=== PATIENT | male | born 1960 | race Caucasian/White ===

== ENCOUNTER 2016-08-29 08:54 | Inpatient (IN) | payer OTHER ==
[~2016-08-29] VITALS: Ht 182.9 cm; Wt 123.6 kg
--- NOTE | 2016-08-29 10:12 | DIAGNOSTIC IMAGING REPORT ---
PROCEDURE: XR CHEST 2 VIEW INDICATION: COUGH AND SOB TECHNIQUE: PA and lateral views. COMPARISON: None. FINDINGS: Mild cardiomegaly and pulmonary vascular congestion with mild interstitial changes. Probable small pleural effusions. Mediastinum is normal. Thorax is normal IMPRESSION: 1. Mild cardiomegaly with pulmonary vascular congestion /interstitial changes. Probable small effusions. Findings are most compatible with congestive heart failure, although interstitial pneumonitis (e.g., viral, Mycoplasma) should also be considered. 2. Findings discussed with Dr. Rio Fraga.
--- NOTE | 2016-08-29 12:25 | ED NURSING NOTES ---
Clinical Report - Nurses [facility] [address] [place] [address] 08/29/2016 8:57 [id number] Triage time 09:09. Chief Complaint: DIFFICULTY BREATHING. --09:10 Olesya Bennett R.N. Alert. --09:17 Olesya Bennett R.N. 09:13 08/29/16. BP: 151/125. HR: 87. RR: 18. O2 saturation: 97%. Temp: 98.4 F. Pain level now: 0/10. Additional comments: PT STATES HE WAS UP ALL NIGHT WITH DIFFICULTY BREATHING. --09:17 Olesya Bennett R.N. Weight: 120.6 kg stated. Height/Length: 72 inches Per Patient. BMI: 36.1. --09:15 Olesya Bennett R.N. Medications None. --09:13 Olesya Bennett R.N. Allergies Eggs or Egg-derived Products. --09:13 Olesya Bennett R.N. History Arrived by private vehicle. Historian: patient. Accompanied by spouse. Primary physician (no PCP). Onset. (2 weeks ago). --09:10 Olesya Bennett R.N. Treatment SHERIFFS: None. PAST MEDICAL HX: Negative. Immunizations: up-to-date. SOCIAL HX: Former smoker, end date 07/2016. Alcohol use; consumes two liquor drinks weekly. No drug use. FUNCTIONAL ASSESSMENT: Functional assessment: no impairments noted. LEARNING NEEDS ASSESSMENT: The learning needs assessment revealed no barriers. --09:17 Olesya Bennett R.N. Interventions ID band on patient. To room. --09:17 Olesya Bennett R.N. PHYSICAL ASSESSMENT 09:17 08/29/16. GENERAL / NEURO / PSYCH: Alert. Oriented X 4. Appears in no acute distress. RESPIRATORY: The patient can speak in full sentences. --09:17 Olesya Bennett R.N. 09:18 08/29/16. RESPIRATORY: Crackles present in the bases bilaterally. --09:18 Olesya Bennett R.N. RESPIRATORY: ( Pt states he used to smoke cigars, but quit 3 weeks ago). --09:22 Olesya Bennett R.N. NURSING PROGRESS NOTES 09:17 08/29/16. Patient gowned. Head of bed elevated. Patient identifiers checked. Call light placed in reach. Bed placed in lowest position. --09:17 Olesya Bennett R.N. 09:35 08/29/16. maintenance service dispatcher, pulse oximeter and NIBP monitor placed on patient; paratransit operator- Lead II and V1; monitor alarms on (Pt appears to be in A FIB with MVR and gets tachy up to 140). --09:35 Thomas Crespo R.N. 09:36 08/29/2016 Site #1 started via IV in the right wrist with an 20g angiocath, with aseptic technique; one attempt. Blood drawn: rainbow set. Labeled in the presence of the patient and sent to the lab. Saline lock flushed with 10 mL saline. --09:36 Thomas Crespo R.N. 09:39 08/29/16. HR: 140 (irregular). Additional comments: EKG ordered. --09:39 Olesya Bennett R.N. 10:30 08/29/16. HR: 127 (irregular). RR: 16. O2 saturation: 95%. --10:43 Olesya Bennett R.N. 10:43 08/29/2016 Diltiazem IVP 10 mg given over 2 minute(s) via site #1. Confirmed 5 rights. --10:44 Olesya Bennett R.N. 10:44 08/29/16. BP: 123/87. HR: 103. RR: 16. O2 saturation: 93% on nasal cannula at 2 liters/minute. --10:45 Olesya Bennett R.N. 11:47 08/29/16. BP: 131/103. HR: 99. RR: 20. O2 saturation: 98%. --11:57 Olesya Bennett R.N. 12:15 08/29/16. ( Pt placed in an inpatient bed for comfort, since there will still be a 3 hour wait to admit.). --12:15 Olesya Bennett R.N. 12:33 08/29/2016 Lovenox (Enoxaparin Sodium) Subcutaneous 80 mg given. Given in the right abdomen. Confirmed 5 rights. --12:33 Olesya Bennett R.N. 12:34 08/29/2016 Diltiazem IVP 10 mg given over 1 minute(s) via site #1. Confirmed 5 rights. --12:34 Olesya Bennett R.N. 13:00 08/29/16. ( Lab in room drawing cultures.). --13:00 Olesya Bennett R.N. 13:21 08/29/2016 Started 2 gm of Ceftriaxone IVPB in bag #1 100 mL; at 150 mL/hr over 30 minute(s) via site #1 via IV pump. Allergies verified and confirmed 5 rights. --13:21 Olesya Bennett R.N. 13:41 08/29/2016 Ceftriaxone IVPB Discontinued: bag #1 infused. Total amount infused: 50 mL. --13:41 Caroline Lee R.N. 13:58 08/29/2016 Started 500 mg of Azithromycin IVPB in bag #1 255 mL; at 255 mL/hr via site #1 via IV pump. Confirmed 5 rights. --13:58 Olesya Bennett R.N. 13:59 08/29/16. BP: 135/101. HR: 110 (irregular). RR: 18. --14:02 Olesya Bennett R.N. 14:59 08/29/2016 Azithromycin IVPB Discontinued: bag #1 infused. Total amount infused: 250 mL. IV patency established. IV site checked: no pain, redness, or swelling. IV flushed thoroughly. --14:59 Caroline Lee R.N. 15:07 08/29/2016 Metoprolol PO 50 mg given. Allergies verified and confirmed 5 rights. --15:07 Caroline Lee R.N. DISPOSITION / DISCHARGE 15:26 08/29/16. Report was given to a nurse via a phone call. Report included patient's care, treatment, medications, reviewed medication reconcilliation, and condition (including any recent changes or anticipated changes). All questions were answered. Report was acknowledged and care was transferred. --15:26 Olesya Bennett R.N. 15:25 08/29/16. BP: 132/85. HR: 120. RR: 18. O2 saturation: 96%. Temp: deferred. Pain level now: 0/10. Additional comments: Pt drinking a milkshake. --15:26 Olesya Bennett R.N. Locked/Released at 08/29/2016 15:37 by Olesya Bennett R.N.
--- NOTE | 2016-08-29 12:25 | ED ORDER SUMMARY ---
..... Patient: BERTHA QUINONES OrderSheet [facility] VisitID: [id number] [place] [address] 56y, M Registration Date/Time: 08/29/2016 ORDER SHEET Weight: 120.6 kg (stated) Allergies: Eggs or Egg-derived Products GENERAL ORDERS: Chest 2V Urgent (09:08/29/2016 Amber Palmer) (Ack 9:31 MARCOSoerner) (10:45 LSullivan R.N.) Brooch And Bracelet Maker (Continuous) (Respiratory Distress) (09:08/29/2016 Amber Palmer) (9:30 LWhalen R.N.) CBC w Diff Urgent (:08/29/2016 Amber Palmer) (Ack 9:31 MARCOSoerner) (9:36 LWhalen R.N.) CMP Urgent (09:08/29/2016 Amber Palmer) (Ack 9:31 MARCOSoerner) (9:36 LWhalen R.N.) BNP Urgent (09:08/29/2016 Amber Palmer) (Ack 9:31 MARCOSoerner) (9:36 LWhalen R.N.) Troponin-I Urgent (09:08/29/2016 Amber Palmer) (Ack 9:31 MARCOSoerner) (9:36 LWhalen R.N.) Pulse oximeter (09:08/29/2016 Amber Palmer) (9:30 LWhalen R.N.) EKG - ER Stat (09:08/29/2016 Amber Palmer) (9:30 LWhalen R.N.) (Ack 9:31 MARCOSoerner) TSH Urgent (10:08/29/2016 Amber Palmer) (Ack 10:28 MARCOSoehood) (10:45 LSullivan R.N.) Magnesium Urgent (10:08/29/2016 Amber Palmer) (Ack 10:28 Ramos) (10:45 LSullivan R.N.) Blood Culture (No) (N/A) Urgent (12:33 08/29/2016 Amber Palmer) (Ack 12:38 Ramos) (12:44 Ramos) MEDICATION ORDERS: Lovenox Subcut 80 mg (HIGH ALERT MEDICATION, NOW) (12:20 08/29/2016 Amber Palmer) (12:33 LSullivan R.N.) Metoprolol PO 50 mg (HIGH ALERT MEDICATION, NOW) (14:57 08/29/2016 Amber Palmer) (Ack 15:03 MWinterer R.N.) (15:07 MWinterer R.N.) IV FLUIDS: IV Saline Lock (09:29 08/29/2016 Amber Palmer) (9:36 LWhalen R.N.) Diltiazem IV 10 mg (HIGH ALERT MEDICATION, NOW) (10:24 08/29/2016 Amber Palmer) (10:44 LSullivan R.N.) Diltiazem IV 10 mg (HIGH ALERT MEDICATION, NOW) (12:18 08/29/2016 Amber Palmer) (12:34 LSullivan R.N.) Ceftriaxone IV 2 gm/50mL (NOW) (12:19 08/29/2016 Amber Palmer) (13:21 LSullivan R.N.) Azithromycin IV 500 mg/250 mL (NOW) (12:20 08/29/2016 Amber Palmer) (13:58 LSullivan R.N.) ORDER SHEET NOTES: [Electronically signed by Olesya Bennett R.N. (15:37 08/29/2016)] [Electronically signed by Rio Fraga Dr. (22:09 09/04/2016)] [Electronically locked/signed by Olesya Bennett R.N. (15:37 08/29/2016)]
--- NOTE | 2016-08-29 12:25 | ED ORDER SUMMARY ---
..... Patient: BERTHA QUINONES OrderSheet VisitID: [id number] [place] [address] 56y, M Registration Date/Time: 08/29/2016 ORDER SHEET Weight: 120.6 kg (stated) Allergies: Eggs or Egg-derived Products GENERAL ORDERS: Chest 2V Urgent (09:08/29/2016 Amber Palmer) (Ack 9:31 MARCOSoerner) (10:45 LSullivan R.N.) Pillow Agent (Continuous) (Respiratory Distress) (09:08/29/2016 Amber Palmer) (9:30 LWhalen R.N.) CBC w Diff Urgent (:08/29/2016 Amber Palmer) (Ack 9:31 MARCOSoerner) (9:36 LWhalen R.N.) CMP Urgent (09:08/29/2016 Amber Palmer) (Ack 9:31 MARCOSoerner) (9:36 LWhalen R.N.) BNP Urgent (09:08/29/2016 Amber Palmer) (Ack 9:31 MARCOSoerner) (9:36 LWhalen R.N.) Troponin-I Urgent (09:08/29/2016 Amber Palmer) (Ack 9:31 MARCOSoerner) (9:36 LWhalen R.N.) Pulse oximeter (09:08/29/2016 Amber Palmer) (9:30 LWhalen R.N.) EKG - ER Stat (09:08/29/2016 Amber Palmer) (9:30 LWhalen R.N.) (Ack 9:31 MARCOSoerner) TSH Urgent (10:08/29/2016 Amber Palmer) (Ack 10:28 MARCOSoehood) (10:45 LSullivan R.N.) Magnesium Urgent (10:08/29/2016 Amber Palmer) (Ack 10:28 Ramos) (10:45 LSullivan R.N.) Blood Culture (No) (N/A) Urgent (12:33 08/29/2016 Amber Palmer) (Ack 12:38 Ramos) (12:44 Ramos) MEDICATION ORDERS: Lovenox Subcut 80 mg (HIGH ALERT MEDICATION, NOW) (12:20 08/29/2016 Amber Palmer) (12:33 LSullivan R.N.) Metoprolol PO 50 mg (HIGH ALERT MEDICATION, NOW) (14:57 08/29/2016 Amber Palmer) (Ack 15:03 MWinterer R.N.) (15:07 MWinterer R.N.) IV FLUIDS: IV Saline Lock (09:29 08/29/2016 Amber Palmer) (9:36 LWhalen R.N.) Diltiazem IV 10 mg (HIGH ALERT MEDICATION, NOW) (10:24 08/29/2016 Amber Palmer) (10:44 LSullivan R.N.) Diltiazem IV 10 mg (HIGH ALERT MEDICATION, NOW) (12:18 08/29/2016 Amber Palmer) (12:34 LSullivan R.N.) Ceftriaxone IV 2 gm/50mL (NOW) (12:19 08/29/2016 Amber Palmer) (13:21 LSullivan R.N.) Azithromycin IV 500 mg/250 mL (NOW) (12:20 08/29/2016 Amber Palmer) (13:58 LSullivan R.N.) ORDER SHEET NOTES: [Electronically signed by Olesya Bennett R.N. (15:37 08/29/2016)] [Electronically signed by Rio Fraga Dr. (22:09 09/04/2016)] [Electronically locked/signed by Olesya Bennett R.N. (15:37 08/29/2016)]
--- NOTE | 2016-08-29 12:25 | ED CLINICAL REPORT ---
Clinical Report - Physicians/Mid Levels [facility] [address] [place] [address] 08/29/2016 8:57 Patient: BETRHA QUINONES Time Seen: 0915. Arrived- By private vehicle. Historian- patient. HISTORY OF PRESENT ILLNESS Chief Complaint: DYSPNEA. This started past few weeks and is still present. It was abrupt in onset and has been constant but is not gone now. The dyspnea is described as moderate and is worsened by being in a supine position and is improved with sitting upright. The patient has had a cough. He has had moderate amounts of yellow sputum. No fever, sweating episodes, wheezing or chest pain or discomfort. No calf pain, foot swelling, anxiety, dizziness or numbness. No palpitations. (reports no hemoptysis, hx of DVT/PE, leg swelling, recent trauma/surgeries. + sick contacts at work. Reports "everyone is sick."). Similar symptoms previously: None. Recent medical care: Not recently seen/assessed. REVIEW OF SYSTEMS No nausea, vomiting, abdominal pain, black stools or bloody stools. No headache or blurred vision. All systems otherwise negative, except as recorded above. PAST HISTORY See nurses notes. Medications: None. Allergies: Eggs or Egg-derived Products. SOCIAL HISTORY Smoker- current status unknown (cigar). Alcohol use. No drug use. No recent travel. Is a local resident. ADDITIONAL NOTES The nursing notes have been reviewed. PHYSICAL EXAM Vital Signs: 08/29/2016 09:13 BP: 151/125. HR: 87. RR: 18. O2 saturation: 97%. Temp: 98.4 F. Pain level now: 0/10. Blood pressure normal. Oxygen saturation normal. Appearance: Alert. No acute distress. Eyes: Pupils equal, round and reactive to light. Eyes normal inspection. Neck: Normal inspection. No jugular venous distention. Neck supple. CVS: Normal heart rate and rhythm. Heart sounds normal. Pulses normal. Respiratory: No respiratory distress. Breath sounds normal. No wheezes, stridor, rales or rhonchi. Abdomen: Soft and nontender. No organomegaly. Skin: Skin warm and dry. Normal skin color. No rash. Normal skin turgor. Extremities: Extremities exhibit normal ROM. No lower extremity edema. Neuro: Oriented X 3. No motor deficit. No sensory deficit. LABS, X-RAYS, AND EKG EKG: No acute ischemia. Atrial fibrillation (123). Normal QRS complex. Normal axis. Normal ST and T waves, QT and QTc. Prior EKG unavailable. The study has been interpreted contemporaneously. The study has been independently viewed by me. The EKG appears to be a good tracing. Chest X-ray: (PROCEDURE: XR CHEST 2 VIEW INDICATION: COUGH AND SOB TECHNIQUE: PA and lateral views. COMPARISON: None. FINDINGS: Mild cardiomegaly and pulmonary vascular congestion with mild interstitial changes. Probable small pleural effusions. Mediastinum is normal. Thorax is normal IMPRESSION: 1. Mild cardiomegaly with pulmonary vascular congestion /interstitial changes. Probable small effusions. Findings are most compatible with congestive heart failure, although interstitial pneumonitis (e.g., viral, Mycoplasma) should also be considered.). Views: PA and lateral. Technique: good. The X-rays were independently viewed by me and interpreted by the radiologist. The X-rays were discussed with the radiologist (via phone and pacs). Laboratory Tests: CBC w Diff: (RODRIGUEZ: 08/29/2016 09:30) ( MsgRcvd 08/29/2016 09:44) Final results Test Result Flag Units (Reference) WHITE BLOOD COUNT 8.4 K/uL (4.5-11.5) RED BLOOD COUNT 5.05 M/uL (4.50-5.90) HEMOGLOBIN 15.6 gm/dL (13.5-17.5) HEMATOCRIT 46.2 % (41.0-53.0) MEAN CELL VOLUME 91 fL (80-100) MEAN CORPUSCULAR HGB 31 pg (26-34) MEAN CORPUSCULAR HGB CONC 34 g/dL (31-37) RED CELL DISTRIBUTION WIDTH 14.1 % (11.6-14.8) PLATELET COUNT 279 K/uL (150-400) NEUTROPHIL % 66.4 % (50-75) LYMPH % 21.5 L % (25-40) MONO % 9.0 % (3-14) EOSINOPHIL % 2.2 % (0-4) BASOPHIL % 0.9 % (0-2) BNP: (RODRIGUEZ: 08/29/2016 09:30) ( MsgRcvd 08/29/2016 10:09) Final results Test Result Flag Units (Reference) B-TYPE NATRIURETIC PEPTIDE 294 H pg/ml (5-100) CMP: (RODRIGUEZ: 08/29/2016 09:30) ( MsgRcvd 08/29/2016 09:59) Final results Test Result Flag Units (Reference) GLUCOSE 113 H mg/dL (70-110) BUN 24 H mg/dL (7-18) CREATININE 1.3 mg/dL (0.6-1.3) Estimated GFR >60 mL/min Estimated GFR- >60 mL/min Note: Persistent reduction over 3 months in eGFR<60 mL/min/1.73 m2 defines CKD. Patients with eGFR values>=60 mL/min/1.73 m2 may also have CKD if evidence ofpersistent proteinuria. Additional information may be foundat www.kidney.org. SODIUM 142 mmol/L (136-145) POTASSIUM 4.0 mmol/L (3.5-5.1) CHLORIDE 108 H mmol/L (98-107) CARBON DIOXIDE 25 mmol/L (21-32) CALCIUM 8.6 mg/dL (8.5-10.1) TOTAL PROTEIN 6.6 g/dL (6.4-8.2) ALBUMIN 3.6 g/dL (3.3-5.0) BILIRUBIN, TOTAL 0.5 mg/dL (0.0-1.0) ALKALINE PHOSPHATASE 76 U/L (46-116) AST (SGOT) 17 U/L (15-37) ALT (SGPT) 44 U/L (12-78) TROPONIN I 0.05 ng/mL (0.00-1.5) TROPONIN REFERENCE RANGE:<0.1 NEGATIVE0.1-1.5 INDETERMINANT>1.5 POSITIVE . PROGRESS AND PROCEDURES Course of Care: he patient is a pleasant 56-year-old gentleman presenting for evaluation of shortness of breath. Patient is also having cough at this time. Differential diagnosis includes pneumonia, acute myocardial infarction,spontaneous pneumothorax, bronchitis. Patient is nontoxic and is in no acute distress. No concern for sepsis at this time. Patient is agreeable to the treatment and plan. We'll obtainEKG, chest x-ray, and laboratory studies. Patient's workup was remarkable for abnormal findings on EKG. After I left the room, patient was placed on the monitor. His rhythm appeared to change from regular rate and rhythm to irregularly irregularrate and rhythm. EKGs been ordered anddoesn't show signs of atrial for ablation. Patient reports having no history of atrial fibrillation. Unclear of the time of onset for the patient's symptoms and atrial fibrillation. Because patient as been ill for the past several weeks, do not feel comfortableobtaining rhythm control. At this point in time rate control would be obtained. Patient's chads Shanti score was calculated to be 2. Patient is at a 2.2% risk ofcardioembolic stroke. Had long discussion with patient in regards to the workup that he has had here in the emergency department and risks and benefits of pursuing anticoagulation. Patient is agreeable to the treatment and plan. Patient will be admitted to the hospital for further workup and management. Patient is required 2 doses of diltiazem to have his heart ratecontrolled. At this time, patient's heart rateimproved from 130 -140s now to low 100s. Patient is resting in bed and in no acute distress. There at this time, patient reports being a symptomatic. Had long discussion with hospitalist in regards to the patient's presentation here in the emergency department. Hospitalist will except the patient. Unfortunately, we do not have any space available at this time and will have a 1 bed available at approximately 3:00 this afternoon. Patient is agreeable to staying here in the hospital. Do not feel patient needs to be transferred at this time. Do not feel symptoms are caused by acute pulmonary embolism. Patient without risk factors for pulmonary embolism. Patient is at low risk for Wells criteria. Critical care performed (65 minutes). Time is exclusive of separately billable procedures. Time includes: direct patient care, patient reassessment, coordination of patient care, interpretation of data (laboratory data), review of patient's medical records, medical consultation, family consultation regarding treatment decisions and documentation of patient care. CLINICAL IMPRESSION new onset atrial fibrilation bilateral pneumonia acute mild CHF. (Electronically signed by Rio Fraga Dr. 09/04/2016 22:09)
--- NOTE | 2016-08-29 12:25 | ED NURSING NOTES ---
Clinical Report - Nurses [facility] [address] [place] [address] 08/29/2016 8:57 [id number] Triage time 09:09. Chief Complaint: DIFFICULTY BREATHING. --09:10 Olesya Bennett R.N. Alert. --09:17 Olesya Bennett R.N. 09:13 08/29/16. BP: 151/125. HR: 87. RR: 18. O2 saturation: 97%. Temp: 98.4 F. Pain level now: 0/10. Additional comments: PT STATES HE WAS UP ALL NIGHT WITH DIFFICULTY BREATHING. --09:17 Olesya Bennett R.N. Weight: 120.6 kg stated. Height/Length: 72 inches Per Patient. BMI: 36.1. --09:15 Olesya Bennett R.N. Medications None. --09:13 Olesya Bennett R.N. Allergies Eggs or Egg-derived Products. --09:13 Olesya Bennett R.N. History Arrived by private vehicle. Historian: patient. Accompanied by spouse. Primary physician (no PCP). Onset. (2 weeks ago). --09:10 Olesya Bennett R.N. Treatment SACK KEEPER: None. PAST MEDICAL HX: Negative. Immunizations: up-to-date. SOCIAL HX: Former smoker, end date 07/2016. Alcohol use; consumes two liquor drinks weekly. No drug use. FUNCTIONAL ASSESSMENT: Functional assessment: no impairments noted. LEARNING NEEDS ASSESSMENT: The learning needs assessment revealed no barriers. --09:17 Olesya Bennett R.N. Interventions ID band on patient. To room. --09:17 Olesya Bennett R.N. PHYSICAL ASSESSMENT 09:17 08/29/16. GENERAL / NEURO / PSYCH: Alert. Oriented X 4. Appears in no acute distress. RESPIRATORY: The patient can speak in full sentences. --09:17 Olesya Bennett R.N. 09:18 08/29/16. RESPIRATORY: Crackles present in the bases bilaterally. --09:18 Olesya Bennett R.N. RESPIRATORY: ( Pt states he used to smoke cigars, but quit 3 weeks ago). --09:22 Olesya Bennett R.N. NURSING PROGRESS NOTES 09:17 08/29/16. Patient gowned. Head of bed elevated. Patient identifiers checked. Call light placed in reach. Bed placed in lowest position. --09:17 Olesya Bennett R.N. 09:35 08/29/16. sleeve setter lockstitch, pulse oximeter and NIBP monitor placed on patient; technical laboratory asst- Lead II and V1; monitor alarms on (Pt appears to be in A FIB with MVR and gets tachy up to 140). --09:35 Thomas Crespo R.N. 09:36 08/29/2016 Site #1 started via IV in the right wrist with an 20g angiocath, with aseptic technique; one attempt. Blood drawn: rainbow set. Labeled in the presence of the patient and sent to the lab. Saline lock flushed with 10 mL saline. --09:36 Thomas Crespo R.N. 09:39 08/29/16. HR: 140 (irregular). Additional comments: EKG ordered. --09:39 Olesya Bennett R.N. 10:30 08/29/16. HR: 127 (irregular). RR: 16. O2 saturation: 95%. --10:43 Olesya Bennett R.N. 10:43 08/29/2016 Diltiazem IVP 10 mg given over 2 minute(s) via site #1. Confirmed 5 rights. --10:44 Olesya Bennett R.N. 10:44 08/29/16. BP: 123/87. HR: 103. RR: 16. O2 saturation: 93% on nasal cannula at 2 liters/minute. --10:45 Olesya Bennett R.N. 11:47 08/29/16. BP: 131/103. HR: 99. RR: 20. O2 saturation: 98%. --11:57 Olesya Bennett R.N. 12:15 08/29/16. ( Pt placed in an inpatient bed for comfort, since there will still be a 3 hour wait to admit.). --12:15 Olesya Bennett R.N. 12:33 08/29/2016 Lovenox (Enoxaparin Sodium) Subcutaneous 80 mg given. Given in the right abdomen. Confirmed 5 rights. --12:33 Olesya Bennett R.N. 12:34 08/29/2016 Diltiazem IVP 10 mg given over 1 minute(s) via site #1. Confirmed 5 rights. --12:34 Olesya Bennett R.N. 13:00 08/29/16. ( Lab in room drawing cultures.). --13:00 Olesya Bennett R.N. 13:21 08/29/2016 Started 2 gm of Ceftriaxone IVPB in bag #1 100 mL; at 150 mL/hr over 30 minute(s) via site #1 via IV pump. Allergies verified and confirmed 5 rights. --13:21 Olesya Bennett R.N. 13:41 08/29/2016 Ceftriaxone IVPB Discontinued: bag #1 infused. Total amount infused: 50 mL. --13:41 Caroline Lee R.N. 13:58 08/29/2016 Started 500 mg of Azithromycin IVPB in bag #1 255 mL; at 255 mL/hr via site #1 via IV pump. Confirmed 5 rights. --13:58 Olesya Bennett R.N. 13:59 08/29/16. BP: 135/101. HR: 110 (irregular). RR: 18. --14:02 Olesya Bennett R.N. 14:59 08/29/2016 Azithromycin IVPB Discontinued: bag #1 infused. Total amount infused: 250 mL. IV patency established. IV site checked: no pain, redness, or swelling. IV flushed thoroughly. --14:59 Caroline Lee R.N. 15:07 08/29/2016 Metoprolol PO 50 mg given. Allergies verified and confirmed 5 rights. --15:07 Caroline Lee R.N. DISPOSITION / DISCHARGE 15:26 08/29/16. Report was given to a nurse via a phone call. Report included patient's care, treatment, medications, reviewed medication reconcilliation, and condition (including any recent changes or anticipated changes). All questions were answered. Report was acknowledged and care was transferred. --15:26 Olesya Bennett R.N. 15:25 08/29/16. BP: 132/85. HR: 120. RR: 18. O2 saturation: 96%. Temp: deferred. Pain level now: 0/10. Additional comments: Pt drinking a milkshake. --15:26 Olesya Bennett R.N. Locked/Released at 08/29/2016 15:37 by Olesya Bennett R.N.
[2016-08-29 15:55] VITALS: BP 128/87
--- NOTE | 2016-08-29 18:05 | History & Physical Report ---
Information Source Information Source: Self Reliability: Good History Chief Complaint chest flutters and cough History of Present Illness Patient is a 56 year old male with no significant past medical history that is presenting with shortness of breath, palpitations, and cough. Patient claims that earlier this week, approximately 2 days ago he noticed that it was very difficult to lie down without becoming short of breath, and that he would need to sleep on two pillows in order to feel better. Patient continued to have 2 pillow orthopnea however he noticed that his overall excercise tolerance was compromised as well. Patient didnt think much of it, however after attempting to deal with it for the next 2 days he began to notice that he was developing palpitations as well. Patient then started to develop a cough. Overall picture became worrisome for the patient, so he came to the hospital. Upon arrival patient was seen to be in rapid atrial fibrillation. Patient was treated with diltiazem and metoprolol and his rate was better controlled. Patient History 1. Atrial fibrillation, new onset 2. Congestive heart failure Social History Patient lives with his and son. He drinks socially and has a remote history of cigar smoking which lasted about 1.5 years and it was a daily habit. 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 Patient denies any illicit drug use. Family History Family history was reviewed; no changes noted. Medications and Allergies Medications Home Medications No home medications Current Medications Sig/Susanne Start time Last Medication Dose Route Stop Time Status Admin Metoprolol Succinate 25 MG DAILY 08/30 1000 AC 08/30 PO 1030 Diltiazem HCl 120 MG DAILY 08/30 0900 AC 08/30 PO 1030 Al Hydrox/Mg Hydrox/ 15 ML Q1H PRN 08/30 0830 AC Simethicone PO Atropine Sulfate 0.5 MG Q3MIN PRN 08/30 0830 AC IV Lidocaine HCl See Dose Q5MIN PRN 08/30 0830 AC Insts (1) IV Magnesium Hydroxide 10 ML QAM PRN 08/30 0830 AC PO Morphine Sulfate 2 MG Q3MIN PRN 08/30 0830 AC IV Nitroglycerin See Dose Q5MIN PRN 08/30 0830 AC Insts (2) SL Morphine Sulfate 2 MG Q4H PRN 08/30 0730 AC IV Morphine Sulfate 4 MG Q4H PRN 08/30 0730 AC IV Pantoprazole Sodium 40 MG DAILY@0608/30 0600 AC 08/30 Sesquihydrate PO 0616 Albuterol/Ipratropium 3 ML RTQ4H PRN 08/29 1245 AC IN Ondansetron HCl 4 MG Q8H PRN 08/29 1245 AC IV Dose Instructions: (1)Lidocaine HCl: 1.5 MG/KG (2)Nitroglycerin: 1 TABLET Allergies Coded Allergies: Eggs or Egg-derived Products (08/29/16) Review of Systems Constitutional Denies: Fever, Chills, Sweats, Weakness, Malaise, Other. Eyes Denies: Pain, Vision Change, Conjunctival Inflammation, Eyelid Inflammation, Redness, Other. ENT Denies: Ear Pain, Ear Discharge, Nose Pain, Nasal Discharge, Nasal Congestion, Mouth Pain, Mouth Swelling, Throat Pain, Throat Swelling, Other. Respiratory SOB w/exertion. Denies: Cough, Dry, Wheezing, Hemoptysis, Pleuritic Pain, Sputum, Other. Cardiovascular Palpitations, Orthopnea. Denies: Chest Pain, PND, Edema, Light-headedness, Other. Gastrointestinal Denies: Nausea, Vomiting, Abdominal Pain, Diarrhea, Constipation, Melena, Hematochezia, Other. Genitourinary Denies: Dysuria, Frequency, Incontinence, Hematuria, Retention, Other. Musculoskeletal Denies: Neck Pain, Shoulder Pain, Arm Pain, Back Pain, Hand Pain, Leg Pain, Foot Pain, Other. Skin Denies: Rash, Lesions, Jaundice, Bruising, Other. Neurological Denies: Weakness, Numbness, Incoordination, Change in speech, Confusion, Seizures, Other. Physical Exam Vital Signs / I&Os Vital Signs Date Time Temp Pulse Resp B/P Pulse O2 O2 Flow FiO2 Ox Delivery Rate 08/30 1429 97.3 90 20 131/78 95 Room Air 08/30 1102 98.1 106 20 116/89 96 Room Air 0.0 08/30 1030 Room Air 08/30 1016 1.0 08/30 0742 98.1 106 20 134/87 96 Nasal 1.0 Cannula 08/30 0444 98.2 102 20 130/90 96 Nasal 1.0 Cannula 08/30 0100 73 18 128/90 96 08/30 0015 98.4 89 18 147/105 96 Room Air 08/29 2033 Room Air I&O 08/29 0800 08/29 1600 08/30 0000 Intake Total 0 240 Output Total 0 250 Balance 0 -10 General Appearance Alert, Oriented X3, No acute distress HEENT PERRLA, Moist mucous membranes Lungs Clear to auscultation, Normal air movement Cardiovascular - irregularly irregular rhytym - no S3 noted - no evidence of florid heart failure Abdomen Soft, No guarding, No rebound, No hepatosplenomegaly Extremities No clubbing, No edema, Normal pulses, Strength = upper ext's, Strength = lower ext's Skin No Breakdown, No Significant Lesions Psych/Mental Status Mood normal LAB Results Laboratory Tests 08/30 0525 Chemistry Plasma Sodium (136 - 145 mmol/L) 142 Plasma Potassium (3.5 - 5.1 mmol/L) 4.5 Plasma Chloride (98 - 107 mmol/L) 108 CO2 (Enzymatic) (21 - 32 mmol/L) 25 BUN (7 - 18 mg/dL) 27 Creatinine (0.6 - 1.3 mg/dL) 1.2 Est GFR ( Amer) (mL/min) >60 Est GFR (Non-Af Amer) (mL/min) >60 Glucose (70 - 110 mg/dL) 110 Plasma Calcium (8.5 - 10.1 mg/dL) 9.1 Total Bilirubin (0.0 - 1.0 mg/dL) 0.5 AST (15 - 37 U/L) 18 ALT (12 - 78 U/L) 39 Alkaline Phosphatase (46 - 116 U/L) 74 Total Protein (6.4 - 8.2 g/dL) 6.1 Albumin (3.3 - 5.0 g/dL) 3.5 Coagulation INR (0.8 - 1.2) 1.0 Hematology WBC (4.5 - 11.5 K/uL) 10.1 RBC (4.50 - 5.90 M/uL) 4.90 Hgb (13.5 - 17.5 gm/dL) 15.2 Hct (41.0 - 53.0 %) 45.2 MCV (80 - 100 fL) 92 MCH (26 - 34 pg) 31 RDW (11.6 - 14.8 %) 14.6 Neut % (Auto) (50 - 75 %) 67.1 Lymph % (Auto) (25 - 40 %) 22.0 Forrest % (Auto) (3 - 14 %) 8.1 Eos % (Auto) (0 - 4 %) 2.1 Baso % (Auto) (0 - 2 %) 0.7 Plt Count, EDTA (150 - 400 K/uL) 271 PUBS MCHC (31 - 37 g/dL) 34 Assessment and Plan Problem List 1. Atrial fibrillation, new onset Plan - pt has new onset atrial fibrillation - Pt recieved IV diltiazem and po metoprolol in the ER with adequate rate control - will continue with diltiazem and add metoprolol if necessary - CHADS VASC score is 2, will approach patient about anti coagulation - will monitor on telemetry overnight - will obtain echo in the am - will continue to monitor for improvement or return to rapid afib 2. Congestive heart failure Plan - patient found to have 2 pillow orthopnea - most likely secondary to inadequate systolic function while in atrial fibrillation - will obtain echo in the am 3. Pneumonia of both lower lobes Plan - given presentation unlikely to be pneumonia - no white count, no fever, no cough present on bilateral bases - this patient has pleural effusions - no antibioitic required
[2016-08-30] VITALS (9 sets, daily range): BP systolic 116–147; BP diastolic 78–105
--- NOTE | 2016-08-30 05:41 | NUR ---
PT SLEPT OFF AND ON THROUGH THE NIGHT, BUT FELT HOT AND UNCOMFORTABLE, TRIED TO SLEEP IN CHAIR FOR PART OF THE NIGHT. NO COMPLAINTS OF PAIN. UP INDEPENDENTLY TO BATHROOM. PT REMAINED IN AFIB DURING THE SHIFT WITH HR RANGING FROM 80s to 140s. HR VASCILLATED THROUGHOUT THE NIGHT BUT NEVER SUSTAINED AT ANY ONE RATE.
--- NOTE | 2016-08-30 14:26 | DIAGNOSTIC IMAGING REPORT ---
REFERRING PHYSICIAN/PROVIDER: Stewart Nation MD CONSULTING PIG MACHINE OPERATOR: Juan C Aquino Jr MD INDICATION: new onset atrial fibrillation with chf signs Procedure: A two-dimensional transthoracic echocardiogram with color flow and Doppler was performed. The study quality was technically difficult. The patient was in atrial fibrillation with rapid ventricular response during the exam with a heart rate exceeding 100 bpm. Left Ventricle: The left ventricle is mildly dilated. Left ventricular wall thickness is mildly increased. Left ventricular systolic function is moderate to severely reduced. The ejection fraction is estimated to be 25-30%. There is moderate to severe global hypokinesis of the left ventricle. Diastolic function could not be accurately assessed due to atrial fibrillation. Right Ventricle: The right ventricle grossly appears normal in size with probable normal systolic function. Atria: The left atrium is severely dilated. The right atrium is moderately dilated. The interatrial septum is intact with no evidence for an atrial septal defect. Mitral Valve: The mitral valve is normal in structure and function. There is mild mitral regurgitation. Aortic Valve: The aortic valve is trileaflet. The aortic valve opens well. The aortic valve is mildly calcified. There is trace aortic regurgitation. Tricuspid Valve: The tricuspid valve leaflets are thin and pliable. There is mild tricuspid regurgitation. The right ventricular systolic pressure is estimated at 37 mmHg assuming a right atrial pressure of 8 mm Hg. Pulmonic Valve: The pulmonic valve is not well visualized. The pulmonic valve is not well seen, but is grossly normal. There is a trace or physiologic amount of pulmonic regurgitation. There is no other significant valvular heart disease. Great Vessels: The aortic root is normal size. The ascending aorta is moderately enlarged. It measures at 4.3 cm. The IVC is of normal diameter and collapses less than 50% with a sniff. This suggests a right atrial pressure of 8 mm Hg. Pericardium/ Pleura There is no pericardial effusion. IMPRESSION: The left ventricle is mildly dilated. Left ventricular wall thickness is mildly increased. Left ventricular systolic function is moderate to severely reduced. The ejection fraction is estimated to be 25-30%. There is moderate to severe global hypokinesis of the left ventricle. The right ventricle grossly appears normal in size with probable normal systolic function. The right ventricular systolic pressure is estimated at 37 mmHg assuming a right atrial pressure of 8 mm Hg. The left atrium is severely dilated. The right atrium is moderately dilated. There is mild mitral regurgitation. There is no other significant valvular heart disease. The ascending aorta is moderately enlarged. It measures at 4.3 cm.
--- NOTE | 2016-08-30 17:30 | Progress Note ---
Subjective General Patient seen and examined, patients family are ok with the possibility of anticoagulation. Will see if amanda qualifies for xarelto. 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 Patient upon resuming medication was rate controlled. Constitutional Denies: Fever, Weakness, Malaise. Respiratory SOB w/exertion. Denies: Cough, Dry, Wheezing, Hemoptysis, Pleuritic Pain, Sputum, Other. Cardiovascular Palpitations. Denies: Chest Pain, Orthopnea, PND, Edema, Light-headedness, Other. Gastrointestinal Denies: Nausea, Vomiting, Abdominal Pain, Diarrhea, Constipation, Melena, Hematochezia, Other. Genitourinary Denies: Dysuria, Frequency, Incontinence, Hematuria, Retention, Other. Musculoskeletal Denies: Neck Pain, Shoulder Pain, Arm Pain, Back Pain, Hand Pain, Leg Pain, Foot Pain, Other. Neurological Denies: Weakness, Numbness, Incoordination, Change in speech, Confusion, Seizures, Other. Physical Exam Vital Signs / I&Os Vital Signs Date Time Temp Pulse Resp B/P Pulse O2 O2 Flow FiO2 Ox Delivery Rate 08/30 1429 97.3 90 20 131/78 95 Room Air 08/30 1102 98.1 106 20 116/89 96 Room Air 0.0 08/30 1030 Room Air 08/30 1016 1.0 08/30 0742 98.1 106 20 134/87 96 Nasal 1.0 Cannula 08/30 0444 98.2 102 20 130/90 96 Nasal 1.0 Cannula 08/30 0100 73 18 128/90 96 08/30 0015 98.4 89 18 147/105 96 Room Air 08/29 2033 Room Air I&O 08/29 0800 08/29 1600 08/30 0000 Intake Total 0 240 Output Total 0 250 Balance 0 -10 General Appearance Alert, Oriented X3, No acute distress HEENT Atraumatic, PERRLA, EOMI, Moist mucous membranes Lungs Clear to auscultation, Normal air movement Cardiovascular - irregularly irregular rhythm - no signs of heart failure Abdomen Soft, No tenderness, No guarding Skin No Breakdown, No Significant Lesions Neurological Normal gait, Normal speech, Sensation intact, Cranial nerves intact , Strength 5/5 x4 ext's Psych/Mental Status Mood normal LAB Results Laboratory Tests 08/30 0525 Chemistry Plasma Sodium (136 - 145 mmol/L) 142 Plasma Potassium (3.5 - 5.1 mmol/L) 4.5 Plasma Chloride (98 - 107 mmol/L) 108 CO2 (Enzymatic) (21 - 32 mmol/L) 25 BUN (7 - 18 mg/dL) 27 Creatinine (0.6 - 1.3 mg/dL) 1.2 Est GFR ( Amer) (mL/min) >60 Est GFR (Non-Af Amer) (mL/min) >60 Glucose (70 - 110 mg/dL) 110 Plasma Calcium (8.5 - 10.1 mg/dL) 9.1 Total Bilirubin (0.0 - 1.0 mg/dL) 0.5 AST (15 - 37 U/L) 18 ALT (12 - 78 U/L) 39 Alkaline Phosphatase (46 - 116 U/L) 74 Total Protein (6.4 - 8.2 g/dL) 6.1 Albumin (3.3 - 5.0 g/dL) 3.5 Coagulation INR (0.8 - 1.2) 1.0 Hematology WBC (4.5 - 11.5 K/uL) 10.1 RBC (4.50 - 5.90 M/uL) 4.90 Hgb (13.5 - 17.5 gm/dL) 15.2 Hct (41.0 - 53.0 %) 45.2 MCV (80 - 100 fL) 92 MCH (26 - 34 pg) 31 RDW (11.6 - 14.8 %) 14.6 Neut % (Auto) (50 - 75 %) 67.1 Lymph % (Auto) (25 - 40 %) 22.0 Bee % (Auto) (3 - 14 %) 8.1 Eos % (Auto) (0 - 4 %) 2.1 Baso % (Auto) (0 - 2 %) 0.7 Plt Count, EDTA (150 - 400 K/uL) 271 PUBS MCHC (31 - 37 g/dL) 34 Assessment and Plan Problem List 1. Atrial fibrillation, new onset Plan - pt achieves rate control with metoprolol and diltiazem will continue with it - pt went for echocardiogram will await results - will start anticoagulation depending on what the insurance company covers and what the family wishes - will c.w telemetry 2. Congestive heart failure Plan - awaiting echocardiogram results - no obvious signs of heart failure
--- NOTE | 2016-08-30 20:57 | NUR ---
PT ARRIVED TO FLOOR AT 1628 FROM PACU VIA STRETCHER. PT NAUSEATED - COLD WASHCLOTHS APPLIED AND PT USING QUEASE EASE. PHERNERGAN ADMINISTERED WITH GOOD RESULTS - PT SLEPT WELL AND NAUSEA RESOLVED. PT TOLORATED CLEAR LIQUIDS WELL. PT WALKING IN HALLS WITH GOOD RESULTS. PT DENIES PAIN AT THIS TIME. STATES READINESS TO GO HOME. 4 DRESSINGS D/I. UMBILICUS SITE HAS SMALL AMOUNT OF DRAINAGE ON DRESSING. WCTM.
--- NOTE | 2016-08-30 22:16 | NUR ---
PT C/O FEELING SOB AND A TIGHTENING IN THE CENTER OF HIS CHEST WHEN SLEEPING. VSS 97.7, 93, 20, 132/98, 98% ON RA. PT STATES HE IS WONDERING IF IT IS THE ANXIETY OF WHAT HAS BEEN HAPPENING AND BEING IN THE HOSPITAL FINALLY CATCHING UP WITH HIM. PT STATES HAS SOON HE SITS UP OUT OF BED, THE FEELING GOES AWAY. PT CURRENTLY UP IN CHAIR. DR NOTIFIED. 0.5-1.0 MG ATIVAN ORDERED PRN FOR ANXIETY. GAVE 0.5MG TO PT NOW. PT DENIES SYMPTOMS AT THIS TIME. REMINDED PT TO PRESS CALL LIGHT IF EVENT OCCURS AGAIN. WCTM.
[2016-08-31] VITALS (7 sets, daily range): BP systolic 116–158; BP diastolic 83–107
--- NOTE | 2016-08-31 04:41 | NUR ---
PT. RESTING UP IN CHAIR AT THIS TIME. ALERT, ORIENTED, COOPERATIVE. DENIES CHEST PAIN/PALPITATIONS. DENIES SOB. STATES HE FEELS MORE COMFORTABLE SITTING UP IN CHAIR. CONTINUOUS TELEMETRY MONITORING, HR IN 80'S-90'S AND OCCAS. GOES UP TO LOW 100'S. CALL LIGHT WITHIN REACH. DENIES ANXIETY. WCTM.
--- NOTE | 2016-08-31 07:04 | Progress Note ---
Subjective General Note Date: August 31, 2016 Admission Date: August 29, 2016 Hospital Day: 3 PCP: None Status: Inpatient Advanced Directive: FULL CODE Room: 205 Brief History: The patient is a 56-year-old white male with no significant past mental history who presented to [facility] emergency department secondary to complaints of palpitations and cough. [facility] ER evaluation was consistent with atrial fibrillation with rapid ventricular response. Secondary to the above, the patient was admitted by Stewart Nation M.D. for further evaluation and treatment For other history present illness, past medical history, family history, social history, review of systems, and admission physical examination please see the patient's history and physical examination and ER visit note in the patient's medical record. Subjective: The patient states he is doing somewhat better today. Shortness of breath improved. Feels ready for discharge Patient requests: None Medications and Allergies Medications Current Medications Sig/Susanne Start time Last Medication Dose Route Stop Time Status Admin Lorazepam See Dose Q6H PRN 08/30 2115 AC 08/30 Insts (1) PO 2204 Warfarin Sodium 5 MG DAILY@1400 08/30 1730 AC 08/30 PO 1826 Metoprolol Succinate 25 MG DAILY 08/30 1000 AC 08/30 PO 1030 Diltiazem HCl 120 MG DAILY 08/30 0900 AC 08/30 PO 1030 Al Hydrox/Mg Hydrox/ 15 ML Q1H PRN 08/30 0830 AC Simethicone PO Atropine Sulfate 0.5 MG Q3MIN PRN 08/30 0830 AC IV Lidocaine HCl See Dose Q5MIN PRN 08/30 0830 AC Insts (2) IV Magnesium Hydroxide 10 ML QAM PRN 08/30 0830 AC PO Morphine Sulfate 2 MG Q3MIN PRN 08/30 0830 AC IV Nitroglycerin See Dose Q5MIN PRN 08/30 0830 AC Insts (3) SL Morphine Sulfate 2 MG Q4H PRN 08/30 0730 AC IV Morphine Sulfate 4 MG Q4H PRN 08/30 0730 AC IV Pantoprazole Sodium 40 MG DAILY@0600 08/30 0600 AC 08/31 Sesquihydrate PO 0537 Albuterol/Ipratropium 3 ML RTQ4H PRN 08/29 1245 AC IN Ondansetron HCl 4 MG Q8H PRN 08/29 1245 AC IV Dose Instructions: (1)Lorazepam: 0.5 - 1 MG (1 - 2 TABLETS) (2)Lidocaine HCl: 1.5 MG/KG (3)Nitroglycerin: 1 TABLET Allergies Coded Allergies: Eggs or Egg-derived Products (08/29/16) Physical Exam Vital Signs / I&Os Vital Signs Date Time Temp Pulse Resp B/P Pulse O2 O2 Flow FiO2 Ox Delivery Rate 08/31 0351 98.2 85 16 134/100 97 Room Air 08/31 0104 0.0 08/30 2248 97.5 108 18 134/91 95 Room Air 0.0 08/30 2105 97.7 93 20 132/98 98 Room Air 08/30 1816 97.9 87 20 139/97 95 Room Air 08/30 1600 Room Air 08/30 1429 97.3 90 20 131/78 95 Room Air 08/30 1102 98.1 106 20 116/89 96 Room Air 0.0 08/30 1030 Room Air 08/30 1016 1.0 08/30 0742 98.1 106 20 134/87 96 Nasal 1.0 Cannula I&O 08/31 0000 08/30 1600 08/30 0800 Intake Total 640 640 500 Output Total 375 200 Balance 265 440 500 General Appearance Alert, Oriented X3, Cooperative, No acute distress Lungs Normal air movement, minimal basilar crackles Cardiovascular Normal S1 and S2, irregular rhythm, mild tachycardia Abdomen Normal bowel sounds, Soft, No tenderness Extremities No cyanosis, No clubbing, trace pedal edema Neurological Cranial nerves intact, No lateralizing signs Psych/Mental Status Mental status normal, Mood normal LAB Results Laboratory Tests 08/31 0525 Chemistry Plasma Sodium (136 - 145 mmol/L) 140 Plasma Potassium (3.5 - 5.1 mmol/L) 4.3 Plasma Chloride (98 - 107 mmol/L) 106 CO2 (Enzymatic) (21 - 32 mmol/L) 25 BUN (7 - 18 mg/dL) 22 Creatinine (0.6 - 1.3 mg/dL) 1.1 Est GFR ( Amer) (mL/min) >60 Est GFR (Non-Af Amer) (mL/min) >60 Glucose (70 - 110 mg/dL) 114 Plasma Calcium (8.5 - 10.1 mg/dL) 9.1 Total Bilirubin (0.0 - 1.0 mg/dL) 0.8 AST (15 - 37 U/L) 13 ALT (12 - 78 U/L) 37 Alkaline Phosphatase (46 - 116 U/L) 74 Total Protein (6.4 - 8.2 g/dL) 6.0 Albumin (3.3 - 5.0 g/dL) 3.6 Coagulation INR (0.8 - 1.2) 1.0 Hematology WBC (4.5 - 11.5 K/uL) 9.4 RBC (4.50 - 5.90 M/uL) 4.92 Hgb (13.5 - 17.5 gm/dL) 15.3 Hct (41.0 - 53.0 %) 44.9 MCV (80 - 100 fL) 91 MCH (26 - 34 pg) 31 RDW (11.6 - 14.8 %) 14.0 Neut % (Auto) (50 - 75 %) 71.3 Lymph % (Auto) (25 - 40 %) 17.3 Mcdonough % (Auto) (3 - 14 %) 8.4 Eos % (Auto) (0 - 4 %) 2.1 Baso % (Auto) (0 - 2 %) 0.9 Plt Count, EDTA (150 - 400 K/uL) 261 PUBS MCHC (31 - 37 g/dL) 34 Imaging Echocardiogram The left ventricle is mildly dilated. Left ventricular wall thickness is mildly increased. Left ventricular systolic function is moderate to severely reduced. The ejection fraction is estimated to be 25-30%. There is moderate to severe global hypokinesis of the left ventricle. The right ventricle grossly appears normal in size with probable normal systolic function. The right ventricular systolic pressure is estimated at 37 mmHg assuming a right atrial pressure of 8 mm Hg. The left atrium is severely dilated. The right atrium is moderately dilated. There is mild mitral regurgitation. There is no other significant valvular heart disease. The ascending aorta is moderately enlarged. It measures at 4.3 cm. Dictated by: CALEB MOORE MD D: SYEDA;08/30/16 1426 Assessment and Plan Problem List 1. Atrial fibrillation, new onset Plan -Patient with findings of atrial fibrillation -Persistent mild tachycardia -Adjust beta tatiana, Cardizem -Probable discharge in a.m. 2. Chronic anticoagulation Status Chronic Onset Date Unknown Plan -Coumadin 5 mg by mouth daily -Check INR -Check daily INR 3. Congestive heart failure Plan -Patient with findings of CHF -Ejection fraction in the 25% range -Bossman Eric Toprol Current status: Fair, improved Anticipated discharge date: Anticipated discharge this p.m. or in a.m. Anticipated discharge placement: Home Patient care time: Time spent in chart review, patient interview, physical exam, CPOE, and care documentation: 25 minutes Visit to patient today: 2 Complexity of care: Moderate E&M Codes Rounding: Inpt-Moderate/[id number]
--- NOTE | 2016-08-31 14:00 | NUR ---
PAGED DR GIBSON RE: PT AND REQUESTING UPDATE ON POC. PT TAKING PO WITHOUT PROBLEMS. HE IS VOICING NO COMPLAINTS.
--- NOTE | 2016-08-31 16:19 | NUR ---
NUTRITION NOTE/CONSULT: Pt admitted with PNA and new onset A-fib. Pt new to warfarin. Went to visit pt today and gave written and verbal info on warfarin vs vitamin K. Pt appeared to understand info given today. Provided contact info if pt has questions after he leaves the hospital. Noted pt with allergy to eggs; kitchen aware. RD to follow up with complete assessment per protocol.
--- NOTE | 2016-08-31 19:00 | NUR ---
PATIENT IS ALERT AND ORIENTED. NO C/O N/V. NO C/O SOB. NO C/O CHEST PAIN. IS RESTING IN HIS ROOM/ VISITING WITH FAMILY NOW. LUNG SOUNDS CLEAR. BEEN GETTING WARFARIN FOR CLOT PREVENTION. WAS PASSED OFF IN REPORT THAT THE DOCTOR IS AWARE OF HIS CURRENT LAB VALUES.
--- NOTE | 2016-08-31 23:58 | NUR ---
HR WHEN PALPED WAS 80.
--- NOTE | 2016-09-01 00:30 | NUR ---
Patient denies any pain and prefers to sleep on the chair with feet elevated. remains on TELE with heart rate ranging from high low 80s to high 100s.
[2016-09-01 02:36] VITALS: BP 147/95
[2016-09-01 06:40] VITALS: BP 133/96
--- NOTE | 2016-09-01 07:37 | Progress Note ---
Subjective General Note Date: September 01, 2016 Admission Date: August 29, 2016 Hospital Day: 4 PCP: None Status: Inpatient Advanced Directive: FULL CODE Room: 205 Brief History: The patient is a 56-year-old white male with no significant past mental history who presented to [facility] emergency department secondary to complaints of palpitations and cough. [facility] ER evaluation was consistent with atrial fibrillation with rapid ventricular response. Secondary to the above, the patient was admitted by Stewart Nation M.D. for further evaluation and treatment For other history present illness, past medical history, family history, social history, review of systems, and admission physical examination please see the patient's history and physical examination and ER visit note in the patient's medical record. Subjective: Doing well. Ready for discharge. Ambulating in [place] without problems. Patient requests: None Medications and Allergies Medications Current Medications Sig/Susanne Start time Last Medication Dose Route Stop Time Status Admin Candesartan Cilexetil 4 MG BID 08/31 2100 AC 08/31 PO 2121 Metoprolol Succinate 50 MG Q12HR 08/31 2100 AC 08/31 PO 2120 Furosemide 20 MG DAILY 08/31 1745 AC 08/31 PO 1759 Lorazepam See Dose Q6H PRN 08/30 2115 AC 08/30 Insts (1) PO 2204 Warfarin Sodium 5 MG DAILY@1400 08/30 1730 AC 08/31 PO 1351 Diltiazem HCl 120 MG DAILY 08/30 0900 AC 08/31 PO 0826 Al Hydrox/Mg Hydrox/ 15 ML Q1H PRN 08/30 0830 AC Simethicone PO Atropine Sulfate 0.5 MG Q3MIN PRN 08/30 0830 AC IV Lidocaine HCl See Dose Q5MIN PRN 08/30 0830 AC Insts (2) IV Magnesium Hydroxide 10 ML QAM PRN 08/30 0830 AC PO Morphine Sulfate 2 MG Q3MIN PRN 08/30 0830 AC IV Nitroglycerin See Dose Q5MIN PRN 08/30 0830 AC Insts (3) SL Pantoprazole Sodium 40 MG DAILY@0600 08/30 0600 AC 09/01 Sesquihydrate PO 0546 Albuterol/Ipratropium 3 ML RTQ4H PRN 08/29 1245 AC IN Ondansetron HCl 4 MG Q8H PRN 08/29 1245 AC IV Dose Instructions: (1)Lorazepam: 0.5 - 1 MG (1 - 2 TABLETS) (2)Lidocaine HCl: 1.5 MG/KG (3)Nitroglycerin: 1 TABLET Allergies Coded Allergies: Eggs or Egg-derived Products (08/29/16) Physical Exam Vital Signs / I&Os Vital Signs Date Time Temp Pulse Resp B/P Pulse O2 O2 Flow FiO2 Ox Delivery Rate 09/01 0640 97.9 76 20 133/96 95 Room Air 0.0 09/01 0236 97.7 93 20 147/95 95 Room Air 09/01 0045 Room Air 08/31 2311 98.2 103 20 158/98 96 Room Air 08/31 2122 97 146/103 08/31 1847 97.5 113 18 116/83 93 Room Air 08/31 1604 0.0 08/31 1425 97.5 91 18 140/107 92 Room Air 08/31 1052 97.9 86 18 143/100 94 Room Air 0.0 08/31 0818 97.7 99 18 131/94 97 Room Air 0.0 I&O 09/01 0000 08/31 1600 08/31 0800 Intake Total 1750 880 600 Output Total 1275 400 500 Balance 475 480 100 General Appearance Alert, Oriented X3, Cooperative, No acute distress Lungs Clear to auscultation, Normal air movement Cardiovascular Normal S1 and S2, Irregular rhythm, rate controlled Abdomen Normal bowel sounds, Soft, No tenderness Extremities No cyanosis, No clubbing Neurological Cranial nerves intact, No lateralizing signs Psych/Mental Status Mental status normal, Mood normal LAB Results Laboratory Tests 09/01 08/31 0635 1749 Coagulation INR (0.8 - 1.2) 1.0 1.1 Assessment and Plan Problem List 1. Atrial fibrillation, new onset Plan -Rate controlled -Continue present medical regimen -Continue anticoagulation 2. Congestive heart failure Plan -patient with findings of CHF -Continue SHRUTHI inhibitor, beta tatiana, diuretics -Outpatient follow-up with PCP next week 3. Chronic anticoagulation Status Chronic Onset Date Unknown Plan -continue anticoagulation -Follow up for INR scheduled 4. Hypertension Status Chronic Onset Date Unknown Plan -well-controlled -Continue present therapy -Low salt diet Current status: Fair, improved Anticipated discharge date: Today Anticipated discharge placement: Home Patient care time: Time spent in chart review, patient interview, physical exam, CPOE, and care documentation: >30 minutes Visit to patient today: 2 Complexity of care: Moderate For other recommendations regarding discharge diet, activity, followup, and discharge medications please see the patient's discharge instructions. Greater than 30 min. was spent in the patient's discharge preparation including discharge interview and physical examination, progress note, discharge instructions, and discharge summary E&M Codes Discharge: Inpt >30 min spent/[id number]
--- NOTE | 2016-09-01 09:07 | NUR ---
ALERT AND ORIENTED PT WHO DENIES ANY DISCOMFORT. TAKING PO WITHOUT PROBLEMS AND TELE SHOW AFIB 90'S TO 104.
[2016-09-01 10:28] VITALS: BP 136/87
[2016-09-01] MEDS ORDERED: WARFARIN SODIUM5 MG PO (10:55)
[2016-09-01] MEDS ORDERED: ATACAND8 MG PO (10:55)
[2016-09-01] MEDS ORDERED: CARDIZEM LA120 MG PO (10:55)
[2016-09-01] MEDS ORDERED: FUROSEMIDE20 MG PO (10:57)
[2016-09-01] MEDS ORDERED: TOPROL XL50 MG PO (10:57)
--- NOTE | 2016-09-01 10:59 | Provider's Discharge Care Plan ---
Problem, Goal, Plan Problem List 1. Atrial fibrillation, new onset Goals: Improve disease control, Prevent disease progress Instructions: Follow up as directed, Take meds as directed 2. Congestive heart failure Goals: Improve disease control, Prevent disease progress Instructions: Follow up as directed, Take meds as directed, Avoid processed foods 3. Hypertension Goals: Improve disease control, Prevent disease progress Instructions: Follow up as directed, Take meds as directed, Avoid processed foods 4. Chronic anticoagulation Goals: Improve disease control, Prevent disease progress Instructions: Follow up as directed, Take meds as directed, [facility]
--- NOTE | 2016-09-01 11:03 | Discharge Summary ---
Discharge Summary Report Admit Date 08/29/16 Discharge Date 09/01/16 Admission Diagnosis 1. Atrial fibrillation 2. Hypertension Discharge Diagnosis 1. Atrial fibrillation 2. Hypertension 3. CHF 4. Chronic anticoagulation Brief History The patient is a 56-year-old white male with no significant past mental history who presented to [facility] emergency department secondary to complaints of palpitations and cough. [facility] ER evaluation was consistent with atrial fibrillation with rapid ventricular response. Secondary to the above, the patient was admitted by Stewart Nation M.D. for further evaluation and treatment For other history present illness, past medical history, family history, social history, review of systems, and admission physical examination please see the patient's history and physical examination and ER visit note in the patient's medical record. Hospital Course The following problems and their management were noted during the patient's hospitalization: 1. Atrial fibrillation The patient presented with new onset atrial fibrillation. This persisted throughout hospitalization. Treated with beta tatiana/calcium channel tatiana with good rate control. Echocardiogram showed diffuse hypokinesis ejection fraction approximately 25%. No significant valvular abnormalities. patient placed on anticoagulation. Outpatient follow-up with PCP next week 2. Hypertension Well-controlled. See discharge instructions. Low-salt diet. Outpatient follow -up with PCP next week 3. CHF Patient with findings of CHF as noted above. Patient treated with ARB, beta tatiana, and Lasix. See discharge instructions. Symptoms well controlled at discharge. Outpatient follow-up with PCP. CHF instruction. 4. Chronic anticoagulation See above. Coumadin 7.5 mg by mouth daily. Repeat INR in 2 days. Follow-up with PCP. General Appearance Alert, Oriented X3, Cooperative, No acute distress Lungs Clear to auscultation, Normal air movement Cardiovascular Normal S1, Normal S2, irregular rhythm, rate controlled Abdomen Normal bowel sounds, Soft, No tenderness Neurological Grossly normal Psych/Mental Status Mental status NL, Mood NL Lab/Imaging Laboratory Tests 09/01 08/31 0635 1749 Coagulation INR (0.8 - 1.2) 1.0 1.1 Discharge Instructions/Meds For other recommendations regarding discharge diet, activity, followup, and discharge medications please see the patient's discharge instructions. Discharge condition: Fair, improved Greater than 30 min. was spent in the patient's discharge preparation including discharge interview and physical examination, progress note, discharge instructions, and discharge summary The patient was interviewed and examined on the day of discharge. E&M Codes Discharge: Inpt >30 min spent/[id number]
--- NOTE | 2016-09-01 11:03 | Discharge Summary ---
Discharge Summary Report Admit Date 08/29/16 Discharge Date 09/01/16 Admission Diagnosis 1. Atrial fibrillation 2. Hypertension Discharge Diagnosis 1. Atrial fibrillation 2. Hypertension 3. CHF 4. Chronic anticoagulation Brief History The patient is a 56-year-old white male with no significant past mental history who presented to [facility] emergency department secondary to complaints of palpitations and cough. [facility] ER evaluation was consistent with atrial fibrillation with rapid ventricular response. Secondary to the above, the patient was admitted by Stewart Nation M.D. for further evaluation and treatment For other history present illness, past medical history, family history, social history, review of systems, and admission physical examination please see the patient's history and physical examination and ER visit note in the patient's medical record. Hospital Course The following problems and their management were noted during the patient's hospitalization: 1. Atrial fibrillation The patient presented with new onset atrial fibrillation. This persisted throughout hospitalization. Treated with beta tatiana/calcium channel tatiana with good rate control. Echocardiogram showed diffuse hypokinesis ejection fraction approximately 25%. No significant valvular abnormalities. patient placed on anticoagulation. Outpatient follow-up with PCP next week 2. Hypertension Well-controlled. See discharge instructions. Low-salt diet. Outpatient follow -up with PCP next week 3. CHF Patient with findings of CHF as noted above. Patient treated with ARB, beta tatiana, and Lasix. See discharge instructions. Symptoms well controlled at discharge. Outpatient follow-up with PCP. CHF instruction. 4. Chronic anticoagulation See above. Coumadin 7.5 mg by mouth daily. Repeat INR in 2 days. Follow-up with PCP. General Appearance Alert, Oriented X3, Cooperative, No acute distress Lungs Clear to auscultation, Normal air movement Cardiovascular Normal S1, Normal S2, irregular rhythm, rate controlled Abdomen Normal bowel sounds, Soft, No tenderness Neurological Grossly normal Psych/Mental Status Mental status NL, Mood NL Lab/Imaging Laboratory Tests 09/01 08/31 0635 1749 Coagulation INR (0.8 - 1.2) 1.0 1.1 Discharge Instructions/Meds For other recommendations regarding discharge diet, activity, followup, and discharge medications please see the patient's discharge instructions. Discharge condition: Fair, improved Greater than 30 min. was spent in the patient's discharge preparation including discharge interview and physical examination, progress note, discharge instructions, and discharge summary The patient was interviewed and examined on the day of discharge. E&M Codes Discharge: Inpt >30 min spent/[id number]
--- NOTE | 2016-09-01 12:59 | NUR ---
I REVIEWED DISCHARGE INSTRUCTIONS WITH PT AND . WE DISCUSSED WARFARIN AND DIET, ALSO THE NEED TO HAVE INR DONE REGULARLY AND LAB ORDER GIVEN TO HAVE DRAW ON THE 24TH. PHARMACIST ALSO TALKED WITH PT AND ABOUT WARFARIN. LIST OF AM MEDS THAT PT HAD THIS AM GIVEN TO PT. IV WAS DISCONTINUED. PT AMBULATED OUT WITH STAFF ESCORT.
--- NOTE | 2016-09-04 22:10 | ED MAR SUMMARY ---
..... Medication Administration Record [facility] [address] [place] [place] [address] Patient: BERTHA QUINONES Visit ID: [id number] 56y, M Weight: 120.6 kg Height/Length: 72 in BMI: 36.1 ALLERGIES: Eggs or Egg-derived Products Given 10:43 08/29/2016 Olesya Bennett R.N. Medication Administered: DILTIAZEM [IVP], Dose: 10 mg IVP over 2 minute(s), Site: #1 right wrist. Medication Ordered: Diltiazem IV 10 mg (HIGH ALERT MEDICATION, NOW). Given 12:33 08/29/2016 Olesya Bennett R.N. Medication Administered: LOVENOX [SUBCUTANEOUS] (ENOXAPARIN SODIUM), Dose: 80 mg Subcutaneous. Medication Ordered: Lovenox Subcut 80 mg (HIGH ALERT MEDICATION, NOW). Given 12:34 08/29/2016 Olesya Bennett R.N. Medication Administered: DILTIAZEM [IVP], Dose: 10 mg IVP over 1 minute(s), Site: #1 right wrist. Medication Ordered: Diltiazem IV 10 mg (HIGH ALERT MEDICATION, NOW). Start 13:21 08/29/2016 Olesya Bennett R.N., Stop 13:41 08/29/2016 Caroline Lee R.N. Medication Administered: CEFTRIAXONE [IVPB], Dose: 2 gm IVPB over 30 minute(s), Rate: 150 mL/hr, Dispensed: 100 mL bag, Site: #1 right wrist. Medication Ordered: Ceftriaxone IV 2 gm/50mL (NOW). Start 13:58 08/29/2016 Olesya Bennett R.N., Stop 14:59 08/29/2016 Caroline Lee R.N. Medication Administered: AZITHROMYCIN [IVPB], Dose: 500 mg IVPB, Rate: 255 mL/hr, Dispensed: 255 mL bag, Site: #1 right wrist. Medication Ordered: Azithromycin IV 500 mg/250 mL (NOW). Given 15:07 08/29/2016 Caroline Lee R.N. Medication Administered: METOPROLOL [PO], Dose: 50 mg PO. Medication Ordered: Metoprolol PO 50 mg (HIGH ALERT MEDICATION, NOW).
--- NOTE | 2016-09-04 22:10 | ED DISCHARGE INSTRUCTIONS ---
Patient: BERTHA QUINONES General Instructions [facility] VisitID: [id number] [address] [place] [address] 56y, M Registration Date/Time: 08/29/2016 new onset atrial fibrilation bilateral pneumonia acute mild CHF. (Electronically signed by Rio Fraga Dr. 09/04/2016 22:09)
--- NOTE | 2016-09-04 22:10 | ED MAR SUMMARY ---
..... Medication Administration Record [facility] [address] [place] [address] Patient: BERTHA QUINONES Visit ID: [id number] 56y, M Weight: 120.6 kg Height/Length: 72 in BMI: 36.1 ALLERGIES: Eggs or Egg-derived Products Given 10:43 08/29/2016 Olesya Bennett R.N. Medication Administered: DILTIAZEM [IVP], Dose: 10 mg IVP over 2 minute(s), Site: #1 right wrist. Medication Ordered: Diltiazem IV 10 mg (HIGH ALERT MEDICATION, NOW). Given 12:33 08/29/2016 Olesya Bennett R.N. Medication Administered: LOVENOX [SUBCUTANEOUS] (ENOXAPARIN SODIUM), Dose: 80 mg Subcutaneous. Medication Ordered: Lovenox Subcut 80 mg (HIGH ALERT MEDICATION, NOW). Given 12:34 08/29/2016 Olesya Bennett R.N. Medication Administered: DILTIAZEM [IVP], Dose: 10 mg IVP over 1 minute(s), Site: #1 right wrist. Medication Ordered: Diltiazem IV 10 mg (HIGH ALERT MEDICATION, NOW). Start 13:21 08/29/2016 Olesya Bennett R.N., Stop 13:41 08/29/2016 Caroline Lee R.N. Medication Administered: CEFTRIAXONE [IVPB], Dose: 2 gm IVPB over 30 minute(s), Rate: 150 mL/hr, Dispensed: 100 mL bag, Site: #1 right wrist. Medication Ordered: Ceftriaxone IV 2 gm/50mL (NOW). Start 13:58 08/29/2016 Olesya Bennett R.N., Stop 14:59 08/29/2016 Caroline Lee R.N. Medication Administered: AZITHROMYCIN [IVPB], Dose: 500 mg IVPB, Rate: 255 mL/hr, Dispensed: 255 mL bag, Site: #1 right wrist. Medication Ordered: Azithromycin IV 500 mg/250 mL (NOW). Given 15:07 08/29/2016 Caroline Lee R.N. Medication Administered: METOPROLOL [PO], Dose: 50 mg PO. Medication Ordered: Metoprolol PO 50 mg (HIGH ALERT MEDICATION, NOW).
--- NOTE | 2016-09-04 22:10 | ED DISCHARGE INSTRUCTIONS ---
Patient: BERTHA QUINONES General Instructions [facility] VisitID: [id number] [address] [place] [address] 56y, M Registration Date/Time: 08/29/2016 new onset atrial fibrilation bilateral pneumonia acute mild CHF. (Electronically signed by Rio Fraga Dr. 09/04/2016 22:09)
--- NOTE | 2016-09-04 22:11 | ED MED RECONCILIATION SUMMARY ---
Patient: BERTHA QUINONES Medication Reconciliation Report [facility] VisitID: [id number] [address] [place] [address] 56y, M Registration Date/Time: 08/29/2016 Weight: 120.6 kg Height/Length: 72 in. BMI: 36.1 ALLERGIES: Eggs or Egg-derived Products The patient's Home Medications are listed below: NONE. The source(s) of the original Home Medication information: Not obtained. The following Medications were given to the patient in the Emergency Department: Diltiazem [IVP] IVP 10 mg, administered: 08/29/2016 10:43:00 AM Lovenox [Subcutaneous] Subcutaneous 80 mg, administered: 08/29/2016 12:33:00 PM Diltiazem [IVP] IVP 10 mg, administered: 08/29/2016 12:34:00 PM Ceftriaxone [IVPB] IVPB bolus 0, then 2 gm 150 mL/hr, administered: 08/29/2016 1:21:00 PM Azithromycin [IVPB] IVPB bolus 0, then 500 mg 255 mL/hr, administered: 08/29/2016 1:58:00 PM Metoprolol [PO] PO 50 mg, administered: 08/29/2016 3:07:00 PM The following Medications were prescribed to the patient: None.
--- NOTE | 2016-09-04 22:11 | ED MED RECONCILIATION SUMMARY ---
Patient: BERTHA QUINONES Medication Reconciliation Report [facility] VisitID: [id number] [address] [place] [address] 56y, M Registration Date/Time: 08/29/2016 Weight: 120.6 kg Height/Length: 72 in. BMI: 36.1 ALLERGIES: Eggs or Egg-derived Products The patient's Home Medications are listed below: NONE. The source(s) of the original Home Medication information: Not obtained. The following Medications were given to the patient in the Emergency Department: Diltiazem [IVP] IVP 10 mg, administered: 08/29/2016 10:43:00 AM Lovenox [Subcutaneous] Subcutaneous 80 mg, administered: 08/29/2016 12:33:00 PM Diltiazem [IVP] IVP 10 mg, administered: 08/29/2016 12:34:00 PM Ceftriaxone [IVPB] IVPB bolus 0, then 2 gm 150 mL/hr, administered: 08/29/2016 1:21:00 PM Azithromycin [IVPB] IVPB bolus 0, then 500 mg 255 mL/hr, administered: 08/29/2016 1:58:00 PM Metoprolol [PO] PO 50 mg, administered: 08/29/2016 3:07:00 PM The following Medications were prescribed to the patient: None.
== END 2016-09-01 12:58 | disposition home or self-care (01) | DRG 308 ==
LOC: ED SRH 08:54 → TRANS SRH 12:25 → ACUTE2 SRH 15:50
PROVIDERS: ADMIT Student in an Organized Health Care Education/Training Program
DX: I48.91 Unspecified atrial fibrillation (principal); I11.0 Hypertensive heart disease with heart failure; I50.23 Acute on chronic systolic (congestive) heart failure
CPT/HCPCS: 90065; 90074; 90100; 90616; 91320; 92720; 93140; 94060; 95059

== ENCOUNTER 2016-09-03 10:58 | Outpatient (CLI) | payer OTHER ==
[~2016-09-03 10:58] MED LIST: ATACAND8 MG PO; CARDIZEM LA120 MG PO; FUROSEMIDE20 MG PO; TOPROL XL50 MG PO; WARFARIN SODIUM5 MG PO
== END 2016-09-03 23:00 | disposition home or self-care (01) ==
LOC: LAB SRH 10:58
DX: Z79.01 Long term (current) use of anticoagulants (principal)
CPT/HCPCS: 90074; 94060